=== PATIENT | male | born 1950 | race African-American/Black ===

== ENCOUNTER 2017-01-07 01:16 | Observation (INO) | payer OTHER ==
[~2017-01-07] VITALS: Ht 172.7 cm; Wt 65.8 kg
[~2017-01-07 01:16] MED LIST: ALPRAZOLAM1 MG PO; AMBIEN5 MG PO; AMLODIPINE BES2.5 M1; AMLODIPINE BESY10 M1 PO; ASPIR 8181 MG PO; ATORVASTATIN CA40 M1 PO; BUS10 PO; CARAFATE1 GM PO; CARISOPRODOL350 MG PO; COLACE100 MG PO; DIABETA1.25 MG PO; DIF100 PO; ENDOCET PO; FLONS; GABAPENTIN300 M2 PO; HUMI SC; IBUPROFEN600 MG PO; KETOROLAC 0.4%; LAC-HYDRIN12% TP; LANSOPRAZOLE30 M2 PO; LANTI SQ; LANTUS100 U/ML SC; LASIX40 MG PO; LEXAPRO10 MG PO; LINZESS145 MC1 PO; LIO10 PO; LISINOPRIL10 MG PO; LOMOTIL1 TAB PO; LUMIGAN2.5 M1 OP; LUNESTA1 MG PO; MIRALAX17 GM/Dose PO; MORPHINE SULFAT30 M2 PO; MORPHINE SULFAT60 MG PO; MS CONTIN60 MG PO; NAPROXEN375 MG PO; NEU300 PO; NEXAVAR200 MG PO; NIT0.3 SL; NITROSTAT0.4 MG; NOR10 PO; NOR10T PO; NORCO1 TA2 PO; NOVI SQ; OMEPRAZOLE D/R20 M1 PO; OXYC PO; OXYCODONE HYDRO10 M1 PO; OXYCODONE HYDRO30 MG PO; OXYCONTIN30 M1 PO; PRI20 PO; PROCHLORPERAZIN10 M1 PO; RES30 PO; SOM350 PO; SOMA350 MG PO; TRAMADOL HCL50 MG PO; TRAMADOL50 M1 PO; WELLBUTRIN75 MG PO; XAN5 PO; XANAX0.25 MG
[2017-01-07 02:13] LABS: CALCIUM 8.7 mg/dL (8.5-10.1); CARBON DIOXIDE 31.5 mmol/L (21-32); CHLORIDE SERUM 98 mmol/L (98-107); CREATININE SERUM 1.3 mg/dL (0.7-1.3); GFR1 59 mL/min; GLUCOSE SERUM 117 mg/dL (74-106); POTASSIUM SERUM 3.5 mmol/L (3.5-5.1); SODIUM SERUM 137 mmol/L (136-145)
[2017-01-07 02:17] LABS: ALBUMIN 3.4 g/dL (3.4-5.0); ALKALINE PHOSPHATASE 88 U/L (46-116); ALT/SGPT 31 U/L (16-63); AST/SGOT 31 U/L (15-37); BILIRUBIN TOTAL 0.25 mg/dL (0.20-1.00); PLATELET COUNT 406 x10^3mcL (130-400); RED CELL DISTRIBUTION WIDTH 18.1 % (11.5-14.5); TOTAL PROTEIN, SERUM 7.6 g/dL (6.4-8.2)
[2017-01-07 02:30] LABS: CK-MB 2.2 ng/mL (0-3.6)
[2017-01-07 03:47] LABS: CHOLESTEROL/HDL RATIO 1.5
[2017-01-07 03:56] LABS: FREE T4 1.4 ng/dL (0.76-1.46); FREE THYROXINE INDEX 3.7 ug/dL (1.4-4.5); T4(THYROXINE) 12.7 ug/dL (4.7-13.3)
[2017-01-07 04:35] VITALS: BP 111/62
[2017-01-07 05:01] LABS: T3 TOTAL 1.26 ng/mL
[2017-01-07 09:18] VITALS: BP 111/67
[2017-01-07 12:26] LABS: microscopic required? NO
[2017-01-07 13:10] LABS: UA SPECIFIC GRAVITY <=1.005 (1.005-1.035); urine erythrocyte NEGATIVE (NEGATIVE)
[2017-01-07 13:35] LABS: AMPHETAMINE QUAL UR NONE DETECTED (NEG <=1000)
[2017-01-07 17:22] VITALS: BP 111/50
[2017-01-07 20:21] VITALS: BP 100/54
[2017-01-08 05:41] VITALS: BP 109/50
[2017-01-08 06:24] LABS: BASOPHIL % 0.3 % (0-2); PLATELET COUNT 357 x10^3mcL (130-400)
[2017-01-08 06:48] LABS: CALCIUM 8.3 mg/dL (8.5-10.1); CARBON DIOXIDE 30.5 mmol/L (21-32); CHLORIDE SERUM 103 mmol/L (98-107); CREATININE SERUM 0.9 mg/dL (0.7-1.3); GFR1 > 60 mL/min; GLUCOSE SERUM 84 mg/dL (74-106); POTASSIUM SERUM 3.7 mmol/L (3.5-5.1); SODIUM SERUM 139 mmol/L (136-145)
[2017-01-08 06:55] LABS: RED CELL DISTRIBUTION WIDTH 19.8 % (11.5-14.5)
[2017-01-08 07:05] LABS: ALBUMIN 2.5 g/dL (3.4-5.0)
[2017-01-08 10:02] VITALS: BP 117/60
[2017-01-08 16:18] VITALS: BP 117/60
== END 2017-01-08 17:32 | disposition home health service (06) | DRG 422 ==
LOC: ED 01:16 → DU 03:06 → MU 03:06 → DU 03:06 → MU 18:58
PROVIDERS: Emergency Medicine; Family Medicine; ADMIT Family Medicine
DX: E86.0 Dehydration (principal); I42.9 Cardiomyopathy, unspecified; C22.7 Other specified carcinomas of liver; S09.90XA Unspecified injury of head, initial encounter; K21.9 Gastro-esophageal reflux disease without esophagitis; I10 Essential (primary) hypertension; E78.5 Hyperlipidemia, unspecified; F41.9 Anxiety disorder, unspecified; M51.36 Other intervertebral disc degeneration, lumbar region; M16.12 Unilateral primary osteoarthritis, left hip; H40.9 Unspecified glaucoma; B18.2 Chronic viral hepatitis C; Z96.641 Presence of right artificial hip joint; D64.81 Anemia due to antineoplastic chemotherapy; G89.29 Other chronic pain; W18.39XA Other fall on same level, initial encounter; Y93.89 Activity, other specified; Y92.018 Other place in single-family (private) house as the place of occurrence of the external cause; Z68.22 Body mass index [BMI] 22.0-22.9, adult; Z86.73 Personal history of transient ischemic attack (TIA), and cerebral infarction without residual deficits
CPT/HCPCS: 80307; 83880; 84439; 97110-GP; 97116-GP; 97530-GP; G0378; G0480; J1100; J2270; J3010; J7030; Q0092

== ENCOUNTER 2017-07-15 15:33 | Inpatient (IN) | payer OTHER ==
[~2017-07-15] VITALS: Ht 172.7 cm; Wt 75.5 kg
[2017-07-15 17:40] LABS: CALCIUM 8.9 mg/dL (8.5-10.1); CREATININE SERUM 1.5 mg/dL (0.7-1.3); POTASSIUM SERUM 3.6 mmol/L (3.5-5.1)
[2017-07-15 17:45] LABS: ALBUMIN 3.6 g/dL (3.4-5.0); BILIRUBIN TOTAL 0.4 mg/dL (0.20-1.00); CHOLESTEROL/HDL RATIO 1.4; TOTAL PROTEIN, SERUM 8.7 g/dL (6.4-8.2)
[2017-07-15 17:46] LABS: BASOPHIL % 0.5 % (0-2); PLATELET COUNT 334 x10^3mcL (130-400); RED CELL DISTRIBUTION WIDTH 14.5 % (11.5-14.5)
[2017-07-15 17:53] LABS: T3 TOTAL 1.47 ng/mL
[2017-07-15 17:55] LABS: FREE T4 1.26 ng/dL (0.76-1.46); FREE THYROXINE INDEX 3.3 ug/dL (1.4-4.5); T4(THYROXINE) 13.2 ug/dL (4.7-13.3)
[2017-07-15 19:37] LABS: microscopic required? NO
[2017-07-15 19:45] VITALS: BP 123/69
[2017-07-15 19:53] VITALS: Ht 172.7 cm; Wt 75.5 kg
[2017-07-15 20:03] LABS: UA SPECIFIC GRAVITY <=1.005 (1.005-1.035); urine erythrocyte NEGATIVE (NEGATIVE)
[2017-07-15 20:39] LABS: MAGNESIUM 1.8 mg/dL (1.8-2.4)
[2017-07-16 05:41] VITALS: BP 99/56
[2017-07-16 06:11] LABS: CALCIUM 8.6 mg/dL (8.5-10.1); CARBON DIOXIDE 33.8 mmol/L (21-32); CREATININE SERUM 1.7 mg/dL (0.7-1.3); POTASSIUM SERUM 3.7 mmol/L (3.5-5.1)
[2017-07-16 06:21] LABS: BASOPHIL % 0.4 % (0-2); PLATELET COUNT 233 x10^3mcL (130-400); RED CELL DISTRIBUTION WIDTH 14.3 % (11.5-14.5)
[2017-07-16 09:42] VITALS: BP 105/58
[2017-07-16 14:18] VITALS: BP 112/64
[2017-07-16 18:42] VITALS: BP 101/56
[2017-07-16 18:56] VITALS: BP 104/57
[2017-07-16 19:30] VITALS: BP 97/52
[2017-07-17 05:48] VITALS: BP 106/55
[2017-07-17 06:47] LABS: CALCIUM 8.1 mg/dL (8.5-10.1); CARBON DIOXIDE 33.5 mmol/L (21-32); CREATININE SERUM 1.5 mg/dL (0.7-1.3); POTASSIUM SERUM 3.8 mmol/L (3.5-5.1)
[2017-07-17 06:54] LABS: BASOPHIL % 0.4 % (0-2); PLATELET COUNT 228 x10^3mcL (130-400); RED CELL DISTRIBUTION WIDTH 14.4 % (11.5-14.5)
[2017-07-17 10:01] VITALS: BP 134/62
[2017-07-17 14:39] LABS: IRON 31 ug/dL (65-170); TOTAL IRON BINDING CAPACITY 206 ug/dL (250-450)
[2017-07-17 17:30] VITALS: BP 119/68
[2017-07-17 21:08] VITALS: BP 112/71
[2017-07-18 05:52] VITALS: BP 125/67
[2017-07-18 08:39] LABS: BASOPHIL % 0.3 % (0-2); PLATELET COUNT 292 x10^3mcL (130-400)
[2017-07-18 08:43] LABS: RED CELL DISTRIBUTION WIDTH 14.6 % (11.5-14.5)
[2017-07-18 08:56] LABS: CALCIUM 8.8 mg/dL (8.5-10.1); CARBON DIOXIDE 31.5 mmol/L (21-32); CREATININE SERUM 1.3 mg/dL (0.7-1.3); MAGNESIUM 1.9 mg/dL (1.8-2.4); POTASSIUM SERUM 3.7 mmol/L (3.5-5.1)
[2017-07-18 10:42] VITALS: BP 128/73
[2017-07-18 16:34] VITALS: BP 104/51
[2017-07-18 18:54] VITALS: BP 104/51
[2017-07-18 20:40] VITALS: BP 115/58
[2017-07-19 05:26] VITALS: BP 126/64
[2017-07-19 09:50] VITALS: BP 114/85
[2017-07-19 13:36] VITALS: BP 114/85
== END 2017-07-19 14:50 | disposition home health service (06) | DRG 197 ==
LOC: ED 15:33 → DU 18:38 → MU 18:38 → DU 19:30 → MU 07-17 06:22
PROVIDERS: Internal Medicine Gastroenterology; Specialist; ADMIT Family Medicine
PROC: 0DB78ZX Excision of Stomach, Pylorus, Via Natural or Artificial Opening Endoscopic, Diagnostic (ICD-10-PCS; principal; 2017-07-18 15:00)
PROC: 0DJD8ZZ Inspection of Lower Intestinal Tract, Via Natural or Artificial Opening Endoscopic (ICD-10-PCS; 2017-07-18 15:00)
DX: I70.203 Unspecified atherosclerosis of native arteries of extremities, bilateral legs (principal); N17.0 Acute kidney failure with tubular necrosis; Z96.641 Presence of right artificial hip joint; M16.0 Bilateral primary osteoarthritis of hip; Z92.3 Personal history of irradiation; Z68.25 Body mass index [BMI] 25.0-25.9, adult; Z85.05 Personal history of malignant neoplasm of liver; Z92.21 Personal history of antineoplastic chemotherapy; I11.0 Hypertensive heart disease with heart failure; I50.9 Heart failure, unspecified; E46 Unspecified protein-calorie malnutrition; M16.12 Unilateral primary osteoarthritis, left hip; D64.9 Anemia, unspecified
CPT/HCPCS: 43235; 45378; 83880; 84439; 97110-GP; 97116-GP; 97530-GP; C9113; J1200; J1610; J1885; J1940; J2250; J2270; J2310; J3010; J3360; J3490; J7030; Q0092

== ENCOUNTER 2017-09-26 23:48 | Emergency (ER) | payer OTHER ==
[~2017-09-26] VITALS: Ht 172.7 cm; Wt 63.5 kg
[2017-09-27 00:30] VITALS: Ht 172.7 cm; Wt 63.5 kg
[2017-09-27 09:10] VITALS: BP 117/74
== END 2017-09-27 09:10 | disposition home or self-care (01) ==
LOC: ED 23:48
DX: S42.302A Unspecified fracture of shaft of humerus, left arm, initial encounter for closed fracture (principal); I10 Essential (primary) hypertension; I50.9 Heart failure, unspecified; E11.9 Type 2 diabetes mellitus without complications; M19.90 Unspecified osteoarthritis, unspecified site; W22.8XXA Striking against or struck by other objects, initial encounter; Y93.89 Activity, other specified; Y99.8 Other external cause status; Y92.89 Other specified places as the place of occurrence of the external cause
CPT/HCPCS: Q0092

== ENCOUNTER 2017-10-23 10:35 | Inpatient (IN) | payer OTHER ==
[~2017-10-23] VITALS: Ht 172.7 cm; Wt 73.9 kg
[~2017-10-23 10:35] MED LIST changes: -AMLODIPINE BES2.5 M1; +AMLODIPINE BES2.5 M1 PO
[2017-10-23 11:18] LABS: CALCIUM 9.3 mg/dL (8.5-10.1); CHLORIDE SERUM 108 mmol/L (98-107); GFR1 > 60 mL/min; GLUCOSE SERUM 91 mg/dL (74-106); POTASSIUM SERUM 4.4 mmol/L (3.5-5.1); SODIUM SERUM 143 mmol/L (136-145)
[2017-10-23 11:23] LABS: ALBUMIN 3.4 g/dL (3.4-5.0); ALKALINE PHOSPHATASE 155 U/L (46-116); ALT/SGPT 46 U/L (16-63); AST/SGOT 36 U/L (15-37); BILIRUBIN TOTAL 0.31 mg/dL (0.20-1.00)
[2017-10-23 11:25] LABS: TOTAL PROTEIN, SERUM 8.3 g/dL (6.4-8.2)
[2017-10-23 11:29] LABS: BASOPHIL % 0.2 % (0-2); PLATELET COUNT 321 x10^3mcL (130-400)
[2017-10-23 11:43] LABS: RED CELL DISTRIBUTION WIDTH 16.9 % (11.5-14.5)
[2017-10-23 13:03] LABS: microscopic required? NO
[2017-10-23 13:09] LABS: UA SPECIFIC GRAVITY 1.015 (1.005-1.035); urine erythrocyte NEGATIVE (NEGATIVE)
[2017-10-23 13:19] LABS: MAGNESIUM 2.2 mg/dL (1.8-2.4); PHOSPHOROUS 3.9 mg/dL (2.5-4.9)
[2017-10-23 13:20] LABS: CHOLESTEROL/HDL RATIO 1.3
[2017-10-23 13:28] LABS: FREE T4 1.3 ng/dL (0.76-1.46); FREE THYROXINE INDEX 4.1 ug/dL (1.4-4.5); T4(THYROXINE) 12.9 ug/dL (4.7-13.3)
[2017-10-23 13:29] LABS: AMPHETAMINE QUAL UR NONE DETECTED (NEG <=1000)
[2017-10-23 13:31] VITALS: BP 154/83
[2017-10-23 14:19] LABS: T3 TOTAL 1.19 ng/mL
[2017-10-23 17:46] VITALS: BP 135/72
[2017-10-23 21:09] VITALS: BP 166/88
[2017-10-24 05:34] VITALS: BP 166/86
[2017-10-24 06:25] LABS: BASOPHIL % 0.1 % (0-2); PLATELET COUNT 346 x10^3mcL (130-400)
[2017-10-24 06:26] LABS: RED CELL DISTRIBUTION WIDTH 17.1 % (11.5-14.5)
[2017-10-24 06:41] LABS: CALCIUM 8.7 mg/dL (8.5-10.1); CARBON DIOXIDE 24.5 mmol/L (21-32); CHLORIDE SERUM 103 mmol/L (98-107); CREATININE SERUM 0.9 mg/dL (0.7-1.3); GFR1 > 60 mL/min; GLUCOSE SERUM 96 mg/dL (74-106); MAGNESIUM 1.9 mg/dL (1.8-2.4); PHOSPHOROUS 3.8 mg/dL (2.5-4.9); POTASSIUM SERUM 3.6 mmol/L (3.5-5.1); SODIUM SERUM 138 mmol/L (136-145)
[2017-10-24 10:45] VITALS: BP 162/94
[2017-10-24 14:07] VITALS: BP 158/91
[2017-10-24 18:14] VITALS: BP 152/83
[2017-10-24 22:05] VITALS: BP 149/88
[2017-10-25 05:03] VITALS: BP 155/88
[2017-10-25 07:02] LABS: CARBON DIOXIDE 24.8 mmol/L (21-32); CHLORIDE SERUM 104 mmol/L (98-107); CREATININE SERUM 1.2 mg/dL (0.7-1.3); GFR1 > 60 mL/min; GLUCOSE SERUM 119 mg/dL (74-106); MAGNESIUM 2.1 mg/dL (1.8-2.4); PHOSPHOROUS 3.8 mg/dL (2.5-4.9); POTASSIUM SERUM 4.4 mmol/L (3.5-5.1); SODIUM SERUM 141 mmol/L (136-145)
[2017-10-25 07:10] LABS: BASOPHIL % 0.1 % (0-2); PLATELET COUNT 367 x10^3mcL (130-400); RED CELL DISTRIBUTION WIDTH 17.4 % (11.5-14.5)
[2017-10-25 09:35] VITALS: BP 140/78
[2017-10-25] MEDS ORDERED: LISINOPRIL10 MG PO (16:48)
[2017-10-25] MEDS ORDERED: CYCLOBENZAPRINE5 MG PO (16:57)
[2017-10-25] MEDS ORDERED: OXYC PO (16:57)
[2017-10-25] MEDS ORDERED: TYL325 PO (16:58)
[2017-10-25] MEDS ORDERED: MECLIZINE HCL12.5 MG PO (16:59)
[2017-10-25] MEDS ORDERED: ZOFI IV (17:00)
[2017-10-25 17:33] VITALS: BP 150/86
[2017-10-25 19:00] VITALS: Ht 172.7 cm; Wt 73.9 kg
[2017-10-25 21:13] VITALS: BP 94/46
[2017-10-25 23:59] VITALS: BP 97/62
[2017-10-26 05:36] VITALS: BP 90/57
[2017-10-26 06:24] LABS: CALCIUM 8.2 mg/dL (8.5-10.1); CARBON DIOXIDE 25.7 mmol/L (21-32); CREATININE SERUM 1.6 mg/dL (0.7-1.3); PHOSPHOROUS 5.3 mg/dL (2.5-4.9); POTASSIUM SERUM 4.4 mmol/L (3.5-5.1)
[2017-10-26 06:48] LABS: BASOPHIL % 0.4 % (0-2); PLATELET COUNT 282 x10^3mcL (130-400); RED CELL DISTRIBUTION WIDTH 17.3 % (11.5-14.5)
[2017-10-26 09:16] VITALS: BP 90/56
[2017-10-26 12:32] VITALS: BP 98/66
[2017-10-26] MEDS ORDERED: LISINOPRIL10 MG PO (12:52)
[2017-10-26 13:04] VITALS: BP_SYST 2
== END 2017-10-26 15:20 | DRG 347 ==
LOC: ED 10:35 → DU 11:50 → MU 11:50 → DU 13:08 → MU 10-25 08:10
PROVIDERS: Emergency Medicine; Family Medicine
DX: S22.068A Other fracture of T7-T8 thoracic vertebra, initial encounter for closed fracture (principal); N17.0 Acute kidney failure with tubular necrosis; I50.9 Heart failure, unspecified; I42.9 Cardiomyopathy, unspecified; I11.0 Hypertensive heart disease with heart failure; E11.51 Type 2 diabetes mellitus with diabetic peripheral angiopathy without gangrene; E83.39 Other disorders of phosphorus metabolism; S42.292A Other displaced fracture of upper end of left humerus, initial encounter for closed fracture; B18.2 Chronic viral hepatitis C; K21.9 Gastro-esophageal reflux disease without esophagitis; W17.89XA Other fall from one level to another, initial encounter; Z96.641 Presence of right artificial hip joint; G90.9 Disorder of the autonomic nervous system, unspecified; H40.9 Unspecified glaucoma; F41.9 Anxiety disorder, unspecified; M16.12 Unilateral primary osteoarthritis, left hip; E83.51 Hypocalcemia; Z68.24 Body mass index [BMI] 24.0-24.9, adult; Z85.05 Personal history of malignant neoplasm of liver; Y93.89 Activity, other specified; Y92.013 Bedroom of single-family (private) house as the place of occurrence of the external cause; Z82.49 Family history of ischemic heart disease and other diseases of the circulatory system; Z83.3 Family history of diabetes mellitus; Z80.9 Family history of malignant neoplasm, unspecified
CPT/HCPCS: 82962; 83880; 84439; 97110-GP; 97116-GP; 97530-GP; J1100; J2270; J3010; J7030; Q0092

== ENCOUNTER 2017-12-19 14:10 | Inpatient (IN) | payer OTHER ==
[~2017-12-19] VITALS: Ht 175.3 cm; Wt 70.0 kg
[~2017-12-19 14:10] MED LIST changes: +CYCLOBENZAPRINE5 MG PO; +MECLIZINE HCL12.5 MG PO; +TYL325 PO; +ZOFI IV
[2017-12-19 14:15] VITALS: Ht 175.3 cm; Wt 70.0 kg
[2017-12-19 15:31] LABS: BASOPHIL % 0.2 % (0-2); PLATELET COUNT 285 x10^3mcL (130-400)
[2017-12-19 15:35] LABS: RED CELL DISTRIBUTION WIDTH 14.8 % (11.5-14.5)
[2017-12-19 15:41] LABS: ALKALINE PHOSPHATASE 102 U/L (46-116); ALT/SGPT 80 U/L (16-63); AST/SGOT 47 U/L (15-37); BILIRUBIN TOTAL 0.25 mg/dL (0.20-1.00); CALCIUM 7.4 mg/dL (8.5-10.1); CHLORIDE SERUM 103 mmol/L (98-107); CREATININE SERUM 1.2 mg/dL (0.7-1.3); GFR1 > 60 mL/min; GLUCOSE SERUM 81 mg/dL (74-106); SODIUM SERUM 142 mmol/L (136-145); TOTAL PROTEIN, SERUM 6.9 g/dL (6.4-8.2)
[2017-12-19 15:43] LABS: ALBUMIN 3.1 g/dL (3.4-5.0)
[2017-12-19 16:18] LABS: RED BLOOD CELLS 3.05 M/mm3 (4.52-5.90)
[2017-12-19 16:25] LABS: CHOLESTEROL/HDL RATIO 1.4; MAGNESIUM 1.6 mg/dL (1.8-2.4); PHOSPHOROUS 2.6 mg/dL (2.5-4.9)
[2017-12-19 16:38] LABS: FREE T4 1.54 ng/dL (0.76-1.46); FREE THYROXINE INDEX 3.8 ug/dL (1.4-4.5); T4(THYROXINE) 11.3 ug/dL (4.7-13.3)
[2017-12-19 16:40] VITALS: BP 140/87
[2017-12-19 20:39] VITALS: BP 140/62
[2017-12-19 23:46] LABS: microscopic required? NO
[2017-12-19 23:53] LABS: urine erythrocyte NEGATIVE (NEGATIVE)
[2017-12-20 00:04] LABS: AMPHETAMINE QUAL UR NONE DETECTED (NEG <=1000)
[2017-12-20 01:26] LABS: IRON 26 ug/dL (65-170); TOTAL IRON BINDING CAPACITY 226 ug/dL (250-450)
[2017-12-20 05:01] LABS: T3 TOTAL 1.22 ng/mL
[2017-12-20 05:49] VITALS: BP 117/57
[2017-12-20 06:52] LABS: CALCIUM 8.4 mg/dL (8.5-10.1); CARBON DIOXIDE 30.5 mmol/L (21-32); CREATININE SERUM 1.5 mg/dL (0.7-1.3); MAGNESIUM 2.3 mg/dL (1.8-2.4); PHOSPHOROUS 3.4 mg/dL (2.5-4.9); POTASSIUM SERUM 4.3 mmol/L (3.5-5.1)
[2017-12-20 06:55] LABS: BASOPHIL % 0.3 % (0-2); PLATELET COUNT 258 x10^3mcL (130-400)
[2017-12-20 07:10] LABS: RED CELL DISTRIBUTION WIDTH 14.6 % (11.5-14.5)
[2017-12-20 09:50] VITALS: BP 119/60
[2017-12-20] MEDS ORDERED: OXYC PO (13:47)
[2017-12-20 13:52] VITALS: BP 112/50
[2017-12-20 17:58] VITALS: BP 134/70
[2017-12-20 20:59] VITALS: BP 132/60
[2017-12-21 05:44] VITALS: BP 134/68
[2017-12-21 09:39] VITALS: BP 124/55
[2017-12-21 14:53] VITALS: BP 163/61
[2017-12-21 18:22] VITALS: BP 108/53
[2017-12-21 20:40] VITALS: BP 124/64
[2017-12-22 06:37] VITALS: BP 140/68
[2017-12-22 07:16] LABS: CALCIUM 8.4 mg/dL (8.5-10.1); CREATININE SERUM 1.3 mg/dL (0.7-1.3)
[2017-12-22 08:35] LABS: BASOPHIL % 0.3 % (0-2); PLATELET COUNT 309 x10^3mcL (130-400)
[2017-12-22 08:37] LABS: RED CELL DISTRIBUTION WIDTH 15.1 % (11.5-14.5)
[2017-12-22 09:50] VITALS: BP 146/78
[2017-12-22 17:27] VITALS: BP 97/60
[2017-12-22 18:10] VITALS: BP 111/64
[2017-12-22 21:08] VITALS: BP 110/58
[2017-12-23 05:54] VITALS: BP 113/57
[2017-12-23 06:19] LABS: CALCIUM 8.2 mg/dL (8.5-10.1); CREATININE SERUM 1.5 mg/dL (0.7-1.3); POTASSIUM SERUM 4.5 mmol/L (3.5-5.1)
[2017-12-23 06:41] LABS: BASOPHIL % 0.3 % (0-2); PLATELET COUNT 295 x10^3mcL (130-400)
[2017-12-23 16:59] VITALS: BP 92/55
[2017-12-23 21:56] VITALS: BP 92/49
[2017-12-24 01:42] LABS: BASOPHIL % 0.3 % (0-2); PLATELET COUNT 242 x10^3mcL (130-400); RED CELL DISTRIBUTION WIDTH 14.5 % (11.5-14.5)
[2017-12-24 05:57] VITALS: BP 103/56
[2017-12-24 06:34] LABS: PLATELET COUNT 250 x10^3mcL (130-400); RED CELL DISTRIBUTION WIDTH 14.4 % (11.5-14.5)
[2017-12-24 06:42] LABS: BASOPHIL % 0 % (0-2)
[2017-12-24 06:51] LABS: CALCIUM 8.1 mg/dL (8.5-10.1); CARBON DIOXIDE 24.7 mmol/L (21-32); CREATININE SERUM 1.3 mg/dL (0.7-1.3); MAGNESIUM 2.2 mg/dL (1.8-2.4); POTASSIUM SERUM 4.5 mmol/L (3.5-5.1)
[2017-12-24 08:30] VITALS: BP 103/50
[2017-12-24 09:49] VITALS: BP 103/48
[2017-12-24 18:17] VITALS: BP 117/63
[2017-12-24 20:51] VITALS: BP 100/60
[2017-12-25] VITALS (8 sets, daily range): BP systolic 95–116; BP diastolic 47–67
[2017-12-25 10:18] LABS: CARBON DIOXIDE 30.9 mmol/L (21-32); CHLORIDE SERUM 102 mmol/L (98-107); CREATININE SERUM 1.2 mg/dL (0.7-1.3); GFR1 > 60 mL/min; GLUCOSE SERUM 141 mg/dL (74-106); MAGNESIUM 2.1 mg/dL (1.8-2.4); PHOSPHOROUS 3.3 mg/dL (2.5-4.9); SODIUM SERUM 131 mmol/L (136-145)
[2017-12-25 11:01] LABS: PLATELET COUNT 253 x10^3mcL (130-400)
[2017-12-25 11:05] LABS: BASOPHIL % 0.2 % (0-2)
[2017-12-25 11:10] LABS: RED CELL DISTRIBUTION WIDTH 14.6 % (11.5-14.5)
[2017-12-25 11:58] LABS: rbc morphology (normal/abnorm) ABNORMAL (NORMAL)
[2017-12-25 20:45] LABS: PLATELET COUNT 242 x10^3mcL (130-400)
[2017-12-25 20:49] LABS: BASOPHIL % 0 % (0-2); RED CELL DISTRIBUTION WIDTH 14.8 % (11.5-14.5)
[2017-12-25 23:09] LABS: rbc morphology (normal/abnorm) ABNORMAL (NORMAL)
[2017-12-26] VITALS (7 sets, daily range): BP systolic 97–136; BP diastolic 53–70
[2017-12-26 01:50] LABS: BASOPHIL % 0.4 % (0-2); PLATELET COUNT 256 x10^3mcL (130-400); RED CELL DISTRIBUTION WIDTH 14.4 % (11.5-14.5)
[2017-12-26 02:20] LABS: rbc morphology (normal/abnorm) ABNORMAL (NORMAL)
[2017-12-26 06:53] LABS: BASOPHIL % 0.3 % (0-2); CALCIUM 8.3 mg/dL (8.5-10.1); CARBON DIOXIDE 28.3 mmol/L (21-32); CHLORIDE SERUM 101 mmol/L (98-107); CREATININE SERUM 1.2 mg/dL (0.7-1.3); GFR1 > 60 mL/min; GLUCOSE SERUM 122 mg/dL (74-106); PLATELET COUNT 270 x10^3mcL (130-400); POTASSIUM SERUM 4.5 mmol/L (3.5-5.1); SODIUM SERUM 136 mmol/L (136-145)
[2017-12-26 06:56] LABS: RED CELL DISTRIBUTION WIDTH 14.7 % (11.5-14.5)
[2017-12-27 06:19] VITALS: BP 102/55
[2017-12-27 07:20] LABS: BASOPHIL % 0.2 % (0-2); PLATELET COUNT 336 x10^3mcL (130-400); RED CELL DISTRIBUTION WIDTH 15.1 % (11.5-14.5)
[2017-12-27 07:26] LABS: CALCIUM 7.9 mg/dL (8.5-10.1); CARBON DIOXIDE 27.6 mmol/L (21-32); CHLORIDE SERUM 100 mmol/L (98-107); GFR1 > 60 mL/min; GLUCOSE SERUM 120 mg/dL (74-106); POTASSIUM SERUM 3.8 mmol/L (3.5-5.1); SODIUM SERUM 134 mmol/L (136-145)
[2017-12-27 09:29] VITALS: BP 109/53
[2017-12-27] MEDS ORDERED: FERROUS SULFAT324 M1 PO (13:06)
[2017-12-27 14:49] VITALS: BP 109/53
== END 2017-12-27 17:56 | DRG 492 ==
LOC: ED 14:10 → DU 15:00 → MU 15:00 → DU 16:22 → MU 12-20 16:21
PROVIDERS: Emergency Medicine; Family Medicine; Family Medicine Sports Medicine; Neuromusculoskeletal Medicine, Sports Medicine
PROC: 0PSG04Z Reposition Left Humeral Shaft with Internal Fixation Device, Open Approach (ICD-10-PCS; 2017-12-23)
PROC: 30233N1 Transfusion of Nonautologous Red Blood Cells into Peripheral Vein, Percutaneous Approach (ICD-10-PCS; principal; 2017-12-23 08:30)
DX: M84.522A Pathological fracture in neoplastic disease, left humerus, initial encounter for fracture (principal); N17.0 Acute kidney failure with tubular necrosis; E44.0 Moderate protein-calorie malnutrition; I42.9 Cardiomyopathy, unspecified; C79.51 Secondary malignant neoplasm of bone; E87.1 Hypo-osmolality and hyponatremia; I11.0 Hypertensive heart disease with heart failure; I50.9 Heart failure, unspecified; Z96.641 Presence of right artificial hip joint; F41.9 Anxiety disorder, unspecified; M16.12 Unilateral primary osteoarthritis, left hip; G90.8 Other disorders of autonomic nervous system; D64.9 Anemia, unspecified; E87.6 Hypokalemia; M16.11 Unilateral primary osteoarthritis, right hip; Z60.2 Problems related to living alone; G89.29 Other chronic pain; M54.9 Dorsalgia, unspecified; R74.0 Nonspecific elevation of levels of transaminase and lactic acid dehydrogenase [LDH]; K21.9 Gastro-esophageal reflux disease without esophagitis; W19.XXXA Unspecified fall, initial encounter; B19.20 Unspecified viral hepatitis C without hepatic coma; E11.51 Type 2 diabetes mellitus with diabetic peripheral angiopathy without gangrene; Z79.899 Other long term (current) drug therapy; Z82.49 Family history of ischemic heart disease and other diseases of the circulatory system; Z85.118 Personal history of other malignant neoplasm of bronchus and lung; Z85.05 Personal history of malignant neoplasm of liver; Z80.9 Family history of malignant neoplasm, unspecified; Z72.89 Other problems related to lifestyle; Z68.25 Body mass index [BMI] 25.0-25.9, adult; Y93.89 Activity, other specified; Y92.89 Other specified places as the place of occurrence of the external cause; Y99.8 Other external cause status; Z92.21 Personal history of antineoplastic chemotherapy; Z92.3 Personal history of irradiation
CPT/HCPCS: 83880; 84439; 88344; 97110-GP; 97116-GP; 97530-GP; C1713; J0690; J1885; J2270; J2704; J3010; J3475; J3480; J3490; J7030; J7050; J7120; P9016; Q0163

== ENCOUNTER 2018-01-10 14:21 | Emergency (ER) | payer OTHER ==
[~2018-01-10] VITALS: Ht 175.3 cm; Wt 74.8 kg
[~2018-01-10 14:21] MED LIST changes: +FERROUS SULFAT324 M1 PO
[2018-01-10 14:33] VITALS: Ht 175.3 cm; Wt 74.8 kg
[2018-01-10 15:03] LABS: BASOPHIL % 0.2 % (0-2); PLATELET COUNT 382 x10^3mcL (130-400)
[2018-01-10 15:11] LABS: CARBON DIOXIDE 31.1 mmol/L (21-32); CHLORIDE SERUM 104 mmol/L (98-107); CREATININE SERUM 1.1 mg/dL (0.7-1.3); GFR1 > 60 mL/min; GLUCOSE SERUM 99 mg/dL (74-106); POTASSIUM SERUM 4.1 mmol/L (3.5-5.1); SODIUM SERUM 139 mmol/L (136-145)
[2018-01-10 15:17] LABS: ALKALINE PHOSPHATASE 118 U/L (46-116); ALT/SGPT 39 U/L (16-63); AST/SGOT 39 U/L (15-37); BILIRUBIN TOTAL 0.31 mg/dL (0.20-1.00); TOTAL PROTEIN, SERUM 7.6 g/dL (6.4-8.2)
[2018-01-10 15:18] LABS: ALBUMIN 3.2 g/dL (3.4-5.0)
[2018-01-10 17:29] VITALS: BP 131/68
== END 2018-01-10 17:29 | disposition home or self-care (01) ==
LOC: ED 14:21
PROVIDERS: Emergency Medicine
DX: S16.1XXA Strain of muscle, fascia and tendon at neck level, initial encounter (principal); S09.90XA Unspecified injury of head, initial encounter; I10 Essential (primary) hypertension; E11.9 Type 2 diabetes mellitus without complications; M19.90 Unspecified osteoarthritis, unspecified site; W07.XXXA Fall from chair, initial encounter; Y93.89 Activity, other specified; Y92.89 Other specified places as the place of occurrence of the external cause; Y99.8 Other external cause status
CPT/HCPCS: 36415; 83880; J7030; Q0092